=== PATIENT | female | born 2000 ===

== ENCOUNTER 2018-12-03 11:23 | Emergency (ER) | payer SELFPAY ==
[2018-12-03 12:03] VITALS: BP 114/75
--- NOTE | 2018-12-03 12:27 | UC ---
Abdominal Pain Female HPI - HPI Summary HPI Summary: nausea / vomiting x 2 days cannot keep anything down , just came to [place] from [facility] 2 days ago symptoms started as she was on the plane, + abdominal cramping , no diarrhea, no urinary sx , no fever, no chills - History of Current Complaint Chief Complaint: UCGI Stated Complaint: VOMITING x2 DAYS Time Seen by Provider: 12/03/18 12:03 Hx Obtained From: Patient Hx Last Menstrual Period: 12/03/18 ?: No Onset/Duration: Sudden Onset, Lasting Days - 2, Still Present Timing: Intermittent Episodes Lasting: - 2 hrs Severity Initially: Moderate Severity Currently: Moderate Pain Intensity: 0 Location: Diffuse Radiates: No Character: Cramping Aggravating Factor(s): Food Alleviating Factor(s): NPO Associated Signs and Symptoms: Positive: Nausea, Vomiting. Negative: Diaphoresis, Fever, Cough, Chest Pain, Dizzy, Back Pain, Constipation, Blood in Stool, Urinary Symptoms, Decreased Appetite, Vaginal Bleeding, Vaginal Discharge , Diarrhea Allergies/Adverse Reactions: Allergies Allergy/AdvReac Type Severity Reaction Status Date / Time gravol Allergy See Comment Uncoded 12/03/18 12:09 PMH/Surg Hx/FS Hx/Imm Hx Previously Healthy: Yes - Surgical History Surgical History: None - Family History Known Family History: Negative: Diabetes - Social History Alcohol Use: None Substance Use Type: None Smoking Status (MU): Never Smoked Tobacco Review of Systems All Other Systems Reviewed And Are Negative: Yes Constitutional: Positive: Negative Skin: Positive: Negative Eyes: Positive: Negative ENT: Positive: Negative Respiratory: Positive: Negative Cardiovascular: Positive: Negative Gastrointestinal: Positive: Vomiting, Nausea Genitourinary: Positive: Negative Is Patient Immunocompromised?: No Physical Exam Triage Information Reviewed: Yes Appearance: Well-Appearing, No Pain Distress, Well-Nourished Vital Signs: Initial Vital Signs Temp 98.2 F 12/03/18 11:52 Pulse 93 12/03/18 11:52 Resp 18 12/03/18 11:52 BP 114/75 12/03/18 11:52 Pulse Ox 100 12/03/18 11:52 Vital Signs Reviewed: Yes Eye Exam: Normal Eyes: Positive: Conjunctiva Clear ENT: Positive: Normal ENT inspection, Hearing grossly normal, Pharynx normal Neck: Positive: Supple, Nontender, No Lymphadenopathy Respiratory: Positive: Chest non-tender, Lungs clear, Normal breath sounds Cardiovascular: Positive: RRR, No Murmur, Pulses Normal Abdomen Description: Positive: Nontender, Soft. Negative: CVA Tenderness (R), CVA Tenderness (L), Distended, Guarding Bowel Sounds: Positive: Present Abd Pain Female Course/Dx - Differential Dx/Diagnosis Provider Diagnosis: Gastritis Discharge - Sign-Out/Discharge Documenting (check all that apply): Patient Departure All imaging exams completed and their final reports reviewed: No Studies - Discharge Plan Condition: Stable Disposition: HOME Prescriptions: Ondansetron ODT TAB* [Zofran 4 MG Odt TAB*] 8 mg PO Q8H PRN #12 tab.odt PRN Reason: Nausea/Vomiting Patient Education Materials: Gastritis (ED) Referrals: No Primary Care Phys,NOPCP [Primary Care Provider] - 5 Days - Billing Disposition and Condition Condition: STABLE Disposition: Home
== END 2018-12-03 12:26 | disposition home or self-care (01) ==
LOC: UCCORT 11:23
DX: K29.70 Gastritis, unspecified, without bleeding (principal)
CPT/HCPCS: 99202; G0463

== ENCOUNTER 2018-12-10 10:22 | Emergency (ER) | payer SELFPAY | END 2018-12-10 10:58 | disposition left against medical advice (07) | LOC: UCCORT 10:22 | DX: R11.10 Vomiting, unspecified (principal); Z53.21 Procedure and treatment not carried out due to patient leaving prior to being seen by health care provider ==